=== PATIENT | female | born 2000 | race African-American/Black ===

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

== ENCOUNTER 2021-08-14 15:52 | Inpatient (IN) | payer OTHER, SELFPAY ==
[2021-08-14 17:00] VITALS: TEMP 36.6
[2021-08-14 17:06] LABS: Basophils Percent Auto 0.2 % (0.2-1.2); Eosinophils Percent Auto 0.4 % (0-4.4); Hematocrit 38.5 % (37.0-47.0); Hemoglobin 12.5 g/dL (12.0-15.0); Immature Granulocyte Percent A 1.1 % (0-0.5); Lymphocytes Absolute Auto 2.15 K/mm3 (0.9-3.2); Lymphocytes Percent Auto 22.8 % (18.3-44.2); Mean Corpuscular HGB Conc 32.5 g/dl (32-36); Mean Corpuscular Hemoglobin 26.4 pg (26-34); Mean Corpuscular Volume 81.4 fl (80-100); Mean Platelet Volume 10.9 fl (7.4-10.4); Monocytes Absolute Auto 0.7 K/mm3 (0.1-0.6); Monocytes Percent Auto 7.7 % (2.6-8.5); Neutrophils Absolute Auto 6.4 K/mm3 (1.3-6.7); Neutrophils Percent Auto 67.8 % (45.5-73.1); Platelet Count Result 251 k/mm3 (150-375); Red Blood Count 4.73 M/mm3 (4.2-5.4); Red Cell Distribution Width 14.2 % (11.5-14.5); White Blood Count 9.4 K/mm3 (4.5-10.0)
[2021-08-14] MEDS: DINOPROSTONE 10 MG VAG INSERT VAGINAL (17:22)
[2021-08-14] MEDS: AMPICILLIN 2 GM/NS 100 ML 2 GM/100 ML BAG IVPB (17:23)
[2021-08-14] MEDS: LACTATED RINGERS 1,000 ML 125 ML IV CONT (17:23)
[2021-08-14 17:31] VITALS: BMI 32.5
[2021-08-14 18:11] VITALS: BP 118/76; PULSE 106; RESP 18; TEMP 36.6
[2021-08-14 19:40] VITALS: BP 131/86; PULSE 103; RESP 16; TEMP 36.8
[2021-08-14] MEDS: AMPICILLIN 1 GM/NS 50 ML 1 GM/50 ML BAG IVPB (21:16)
[2021-08-14 22:02] VITALS: BP 127/86; PULSE 92; RESP 18; TEMP 36.6
[2021-08-15] VITALS (138 sets, daily range): BP systolic 89–154; BP diastolic 45–107; PULSE 63–127; RESP 16–22; TEMP 36.6–37.1; O2SAT 94–100
[2021-08-15] MEDS: AMPICILLIN 1 GM/NS 50 ML 1 GM/50 ML BAG IVPB ×5 (01:04→20:47)
--- NOTE | 2021-08-15 05:02 | WPDANESEPP ---
Anes - Eval Pre Procedure Procedure: labor epidural Date/Time: 08/15/21 05:02 Surgeon: moira Preop Diagnosis: pain during labor Pre Op Diagnosis: Induction of Labor Patient Data Age: 21 Gender: F Height: 1.75 m Weight: 100 kg Last Vital Signs Temp 36.6 C 08/14/21 22:02 Pulse 81 08/15/21 04:20 Resp 18 08/14/21 22:02 BP 127/83 08/15/21 04:20 Allergies Allergy/AdvReac Type Severity Reaction Status Date / Time No Known Allergies Allergy Verified 07/29/21 09:29 Home Medications Medication Instructions Recorded Confirmed Type ferrous sulfate 325 mg (65 mg 325 mg PO DAILY 06/12/21 07/29/21 History iron) tablet prenat.vits,cortney,mko-ozkq-kajyw 1 tablet PO DAILY 06/12/21 07/29/21 History Laboratory Tests 08/14/21 08/14/21 08/14/21 16:58 16:58 16:58 WBC 9.4 K/mm3 K/mm3 (4.5-10.0) RBC 4.73 M/mm3 M/mm3 (4.2-5.4) Hgb 12.5 g/dL g/dL (12.0-15.0) Hct 38.5 % % (37.0-47.0) MCV 81.4 fl fl (80-100) MCH 26.4 pg pg (26-34) MCHC 32.5 g/dl g/dl (32-36) RDW 14.2 % % (11.5-14.5) Plt Count 251 k/mm3 k/mm3 (150-375) MPV 10.9 fl H fl (7.4-10.4) Immature Gran % (Auto) 1.1 % H % (0-0.5) Neut % (Auto) 67.8 % % (45.5-73.1) Lymph % (Auto) 22.8 % % (18.3-44.2) [place] % (Auto) 7.7 % % (2.6-8.5) Eos % (Auto) 0.4 % % (0-4.4) Baso % (Auto) 0.2 % % (0.2-1.2) Lymph # (Auto) 2.15 K/mm3 K/mm3 (0.9-3.2) [place] # (Auto) 0.7 K/mm3 H K/mm3 (0.1-0.6) Eos # (Auto) 0.0 K/mm3 K/mm3 (0-0.3) Baso # (Auto) 0.0 K/mm3 K/mm3 (0.0-0.1) Abs Immat Gran (auto) 0.10 K/mm3 H K/mm3 (0.00-0.031) Absolute Neuts (auto) 6.4 K/mm3 K/mm3 (1.3-6.7) Absolute Nucleated RBC 0.0 K/mm3 K/mm3 (0.0-0.012) Nucleated RBC % 0.0 % % (0.0-0.2) RPR Pending Blood Type O Positive Antibody Screen Negative Patient hx anesthesia problems: none Family hx anesthesia problems: none Results Review: All pre-operative results and documents have been reviewed as part of the pre-operative evaluation. [facility] Past Medical History Medical History (Updated 08/15/21 @ 05:03 by Alissa Singh CRNA) IUP (intrauterine ), incidental Obesity Family History Family History Father Hypertension Mother Hypertension Social History Social History Smoking status: Never smoker Second hand tobacco smoke exposure: No Alcohol intake: never Substance use: current Substance use type: marijuana Gender identity (if verbalized by the patient): Female Sexual Orientation (if Verbalized by the Patient): Straight or Heterosexual Spiritual care concerns: No Agree to blood products: No Exam Day of Procedure 08/15/21 05:02
[2021-08-15] MEDS: OXYTOCIN 30 UNITS/NS 500 ML 30 UNITS/500 ML BAG 6 UNITS IV CONT (05:55)
[2021-08-15 06:08] LABS: Rapid Plasma Reagin Non-Reactive (NonReactive)
--- NOTE | 2021-08-15 07:02 | PM.IMHP ---
H&P: HPI History of Present Illness Date/Time: 08/15/21 07:08 Ronda is a 21yo @ 40.2wks (EDUAR 08/13/21) who presented overnight for cervidil IOL. She reports good movement. No VB or LOF. Her has been complicated by: - GBS positive (bacteruria) - Anemia on iron Chief Complaint: induction of labor Review of Systems Review of Systems: All systems reviewed & are unremarkable except as noted in HPI and below (HPI) [facility] Past Medical History Medical History (Updated 08/15/21 @ 05:03 by Alissa Singh CRNA) IUP (intrauterine ), incidental Obesity Family History Family History Father Hypertension Mother Hypertension Social History Social History Smoking status: Never smoker Second hand tobacco smoke exposure: No Alcohol intake: never Substance use: current Substance use type: marijuana Gender identity (if verbalized by the patient): Female Sexual Orientation (if Verbalized by the Patient): Straight or Heterosexual Spiritual care concerns: No Agree to blood products: No Meds Home Medications and Allergies Home Medications Medication Instructions Recorded Confirmed Type ferrous sulfate 325 mg (65 mg 325 mg PO DAILY 06/12/21 07/29/21 History iron) tablet prenat.vits,cortney,ivk-lzud-wlzkn 1 tablet PO DAILY 06/12/21 07/29/21 History Allergies Allergy/AdvReac Type Severity Reaction Status Date / Time No Known Allergies Allergy Verified 07/29/21 09:29 Vital Signs Vital Signs - 24 hr 08/14/21 17:00 08/14/21 18:11 08/14/21 19:40 Temperature 98 F 97.9 F 98.2 F Pulse Rate 106 H 103 H Respiratory Rate 18 16 Blood Pressure 118/76 131/86 Exam Const: General: cooperative, healthy appearing, comfortable and no acute distress Resp: Effort & Inspection: normal respiratory effort Cardio: Rate: regular rate GI: GI Palp: No abdominal tenderness : Other: FHT's: 130's/ mod kaila/ + accels/ no decels - cat 1 TOCO: ctx's q2-4min Cervix: 2/50/-3, soft, anterior Membranes: intact Presentation: cephalic Neuro: General: patient oriented x3 Extrem: General: normal to inspection Psych: Appearance: grossly normal Affect: normal affect Attitude: cooperative H&P: Results Labs Labs: Short CBC 08/14/21 Range/Units 16:58 WBC 9.4 (4.5-10.0) K/mm3 Hgb 12.5 (12.0-15.0) g/dL Hct 38.5 (37.0-47.0) % Plt Count 251 (150-375) k/mm3 Assessment and Plan Assessment and plan (1) Encounter for induction of labor: Code(s): Z34.90 - Encounter for supervision of normal , unspecified, unspecified trimester Status: Acute (2) : Qualifiers: Weeks of gestation: 40 weeks Qualified Code(s): Z3A.40 - 40 weeks gestation of Code(s): Z34.90 - Encounter for supervision of normal , unspecified, unspecified trimester Status: Inactive Additional Plan - S/p cervidil overnight; continued with pitocin augmentation - Westfall balloon placed @ 0700 w/ 30cc of fluid - Continuous monitoring; reassuring - Anesthesia consult PRN pain - Ampicillin for GBS
--- NOTE | 2021-08-15 07:02 | WPDHPUPDATE1 ---
History and Physical Update Update Date/Time: 08/15/21 07:02 History and Physical has been reviewed, including an updated exam of the patient. There are NO changes in the patient's condition. Risks, benefits, and alternatives have been discussed and questions answered. Patient agrees to proceed with procedure.
--- NOTE | 2021-08-15 07:14 | PM.OBPNLAB ---
Pain Control Date/time seen: 08/15/21 07:14 Pain control: tolerating well Pelvic Exam Dilation (cm): 3 Effacement (%): 50 station: -2 Amniotic membrane status: Ruptured (AROM, clear 0710) Contractions Monitor mode: External Contraction frequency: 2 Contraction pattern: Regular Status status: Category l Assessment and Plan Pitocin rate (mU/min): 8 Assessment: induction ongoing Plan: continuous present management
[2021-08-15] MEDS: fentaNYL CITRATE INJ (*CRX) 100 MCG/2 ML VIAL 50 MCG IV PUSH ×2 (10:16→12:07)
[2021-08-15] MEDS: LACTATED RINGERS 1,000 ML 125 ML IV CONT ×2 (12:08→15:41)
--- NOTE | 2021-08-15 12:17 | PM.OBPNLAB ---
Pain Control Date/time seen: 08/15/21 12:17 Comments: awaiting epidural Pelvic Exam Dilation (cm): 4 Effacement (%): 70 station: -2 Amniotic membrane status: Ruptured (AROM, clear 0710) Contractions Monitor mode: External Contraction frequency: 3 Contraction pattern: Regular Status status: Category l Assessment and Plan Pitocin rate (mU/min): 12 Assessment: induction ongoing Plan: continuous present management
--- NOTE | 2021-08-15 17:18 | PM.OBPNLAB ---
Pain Control Date/time seen: 08/15/21 17:18 Pain control: epidural Pelvic Exam Dilation (cm): 6 Effacement (%): 100 station: -2 Amniotic membrane status: Ruptured (AROM, clear 0710) Contractions Monitor mode: Internal Contraction frequency: 2 (-3) Contraction pattern: Regular Intrauterine tone measurement: 50 Status status: Category l Assessment and Plan Pitocin rate (mU/min): 16 Assessment: active labor Plan: continuous present management
[2021-08-15] MEDS: miSOPROStol 200 MCG TABLET 800 MCG (22:54)
[2021-08-15] MEDS: OXYTOCIN 30 UNITS/NS 500 ML 30 UNITS/500 ML BAG 125 UNITS IV CONT (23:00)
--- NOTE | 2021-08-15 23:03 | PM.OBPRVD ---
OB - Delivery Note Procedure Delivery date: 08/15/21 Events: Elective Induction of Labor and Positive Group B Strep (GBS) Induction method: Per Cervidil Protocol Delivery augmentation: Rupture of Membranes and Pitocin Delivery monitor: External FHT and Internal Uterine Route of delivery: Laceration Description: Periurethral (right) Delivery repair: vicryl Specimen: No Quantitative Blood Loss (ml): 250 Anesthesia type: Epidural Disposition: Floor [place] Baby Date of : 08/15/21 Time of : 22:38 Weeks of gestation at delivery: 40 (.2) gender: Female Weight (pounds): 7 Weight (ounces): 13 presentation: vertex position: Right Occiput Anterior Placenta delivery description: Expressed Cord Vessel Description: 3 Vessels, Nuchal Cord, Loose and Delayed Cord Clamping score one minute: 7 score five minutes: 9 Narrative: Ronda progressed to complete dilation with strong desire to push. She pushed for approximately 45 minutes with good maternal effort. She delivered the head over intact perineum. Nuchal cord was noted but loose and delivered through. She easily delivered the 's shoulders and body without complication. The infant was immediately placed skin to skin. The mouth and nose were bulb suctioned. The infant was stimulated and cry was heard. Delayed cord clamping was performed, and the cord was then cut. The infant was taken to the warmer for further stimulation and better cry. A segment of the cord was collected for cord gases. The remaining cord blood was collected for typing. With Pitocin running and gentle downward traction on the cord, the placenta delivered without complications. Brisk bleeding was noted and uterine massage was performed, where mild atony was noted and resolved with massage. She was examined and a right periurethral laceration was noted. The periurethral laceration was repaired in the normal fashion using 3-0 Vicryl. Bleeding was once again noted, but she was uncomfortable and did not tolerate bimanual massage, therefore Fentanyl was given. Once she was comfortable, bimanual massage was performed and a large clot was removed. No membranes or placental fragments were noted on uterine sweep. Misoprostol 800mcg was then placed rectally. sponge, lap, instrument, needle counts were correct at the end the procedure. Mom and baby were left bonding in the birthing suite in stable condition. [facility] Delivery Billing Delivery Delivery: Delivery Charge
[2021-08-16] VITALS (7 sets, daily range): BP systolic 104–129; BP diastolic 59–87; PULSE 94–106; RESP 14–18; TEMP 36.6–37.9; O2SAT 99–100
[2021-08-16] MEDS: BENZOCAINE 20% AER SPR (*SP) 56 GM CAN 1 SPRAY TOPICAL (01:23)
[2021-08-16] MEDS: ACETAMINOPHEN 325 MG TABLET 650 MG PO ×2 (01:23→17:36)
[2021-08-16] MEDS: WITCH HAZEL 40 PADS 1 PAD TOPICAL (01:23)
[2021-08-16] MEDS: IBUPROFEN 600 MG TABLET PO ×2 (01:23→12:00)
[2021-08-16 07:55] LABS: Hematocrit 30.8 % (37.0-47.0); Hemoglobin 9.9 g/dL (12.0-15.0)
[2021-08-16] MEDS: MULTIVIT/MIN/PREN/FOL AC/IRON TABLET 1 TAB PO (09:00)
--- NOTE | 2021-08-16 11:10 | WPDANLDPN2 ---
Anes-Prog Note L&D Date/Time: 08/16/21 11:10 Comfortable throughout: labor and delivery Neuraxial method: epidural Epidural/Spinal procedure site: clean & non-tender Neuro status: Neuro function grossly intact. Cardiovascular status: normal Respiratory status: normal Airway patency: baseline Mental status: baseline Post-Op hydration status: normal Vital Signs: Last Vital Signs Temp 36.6 C 08/16/21 07:25 Pulse 105 H 08/16/21 07:25 Resp 16 08/16/21 07:25 BP 122/87 08/16/21 07:25 Pulse Ox 100 08/16/21 07:25 Pain score (VAS): 3 I/O: Intake & Output 08/15/21 08/16/21 08/16/21 23:59 07:59 15:59 Output Total 360 Balance -360 Post-procedural complaints: none Patient feedback: Patient satisfied with anesthetic care.
[2021-08-16] MEDS: DOCUSATE SODIUM 100 MG CAPSULE PO ×2 (12:00→17:36)
--- NOTE | 2021-08-16 13:10 | P.PNOB_ITS ---
OB - PN: Subj Subjective Date/time seen: 08/16/21 10:10 Narrative: PPD#1 Ronda reports doing well today. Her bleeding is light today. Her pain is well controlled on the PO meds. She is tolerating regular diet, voiding, passing gas, and ambulating without issues. She is breast and bottle feeding. She would like to go home tomorrow. OB - PN: Obj Data Labs CBC & Chem 7: 08/16/21 05:02 Labs: Laboratory Results - last 24 hr 08/16/21 05:02 Hgb 9.9 L Hct 30.8 L OB - PN A/P Assessment and Plan (1) Normal vaginal delivery of first : Code(s): O80 - Encounter for full-term uncomplicated delivery Status: Acute Plan day: 1 Plan: routine care and discharge home (tomorrow) Comments: - Pelvic rest; take meds as prescribed - ER return precautions: fever, n/v/abd pain, bleeding, HTN Time Spent With Patient Time: Total time spent is greater than 50% in coordination of care (as documented) at patient's floor/unit and/or counseling patient: Review of Systems 2 Constitutional: Constitutional: Denies chills, Denies fever(s) and Denies h eadache(s) Eyes: Eyes: Denies change in vision ENT: Denies dizziness and Denies headache(s) Cardiovascular: Cardiovascular: Denies chest pain, Denies palpitations and Denies dyspnea Respiratory: Respiratory: Denies cough and Denies dyspnea Gastrointestinal: Gastrointestinal: Denies nausea and Denies vomiting Neurologic: Denies dizziness and Denies headache(s) Endocrine: Endocrine: Denies palpitations Exam Const: General: cooperative, comfortable and no acute distress Orientation/consciousness: patient oriented x3 Resp: Effort & Inspection: normal respiratory effort Auscultation: clear to auscultation bilaterally Cardio: Rate: regular rate GI: Inspection: non-distended GI Palp: No abdominal tenderness and Yes Soft to palpation Auscultation: normal bowel sounds : Other: fundus firm Skin: General skin exam: normal color Neuro: General: patient oriented x3 Extrem: General: normal to inspection Psych: Appearance: grossly normal Affect: normal affect Attitude: cooperative
[2021-08-16] MEDS: POLYSACCHARIDE IRON COMPLEX 150 MG CAPSULE PO (17:37)
[2021-08-17] MEDS: DOCUSATE SODIUM 100 MG CAPSULE PO (06:50)
[2021-08-17] MEDS: IBUPROFEN 600 MG TABLET PO (06:50)
[2021-08-17] MEDS: BENZOCAINE 20% AER SPR (*SP) 56 GM CAN 1 SPRAY TOPICAL (06:50)
[2021-08-17] MEDS: MULTIVIT/MIN/PREN/FOL AC/IRON TABLET 1 TAB PO ×2 (06:51→08:38)
[2021-08-17] MEDS: WITCH HAZEL 40 PADS 1 PAD TOPICAL (06:51)
[2021-08-17] MEDS: POLYSACCHARIDE IRON COMPLEX 150 MG CAPSULE PO (06:51)
[2021-08-17 12:22] VITALS: BP 122/78; PULSE 86; PULSE 94; RESP 14; TEMP 37; O2SAT 100; O2SAT 99
[2021-08-19 08:33] VITALS: BP 138/88; PULSE 82; RESP 20; TEMP 37.2; O2SAT 100
--- NOTE | 2021-08-20 07:37 | PM.OBDSVD ---
DS: Admitting Diagnosis Discharge Date 08/17/21 Admitting Diagnosis induction of labor DS: Discharge Diagnosis Discharge Diagnosis (1) Normal vaginal delivery of first : Code(s): O80 - Encounter for full-term uncomplicated delivery Status: Acute OB - DS: Summary OB Procedures : Ultrasound OB Procedures Intrapartum: Spontaneous Vag Delivery OB Procedures: : None Peripartum Data Delivery Method: Natural Vaginal Laceration Description: Periurethral complications: none 1: Gender: Female Disposition of : home Status at Discharge Functional status at discharge: independent ambulation Overall status at discharge: patient is back to baseline Time Spent with Patient Time attestation: Total time spent providing and/or coordinating discharge services: Time spent: Less than 30 minutes Exam Const: General: cooperative, comfortable and no acute distress Orientation/consciousness: patient oriented x3 Resp: Effort & Inspection: normal respiratory effort Auscultation: clear to auscultation bilaterally Cardio: Rate: regular rate GI: Inspection: non-distended GI Palp: No abdominal tenderness and Yes Soft to palpation Auscultation: normal bowel sounds : Other: fundus firm Skin: General skin exam: normal color Neuro: General: patient oriented x3 Extrem: General: normal to inspection Psych: Appearance: grossly normal Affect: normal affect Attitude: cooperative Discharge Plan Discharge Attending physician on discharge: Anya Frye Discharging Clinician: Anya Frye Anticipated Discharge Date/Time: 08/17/21 08:00 Patient Disposition: Home, Self-Care Activity: may shower, may drive after 2 weeks and pelvic rest Diet: as tolerated and regular Discharge Instructions: Education: Mom and Baby Guide Given to: Mother Follow-Up: Call your delivering provider's office for an appointment to be seen in: 4 Weeks Mom and baby should come to the [facility] for the follow-up appointment. Appointment Date/Time: August 19, 2021 at 9:00 am What to expect at your follow-up visit: Blood Pressure Check Physical Assessment Call [phone] if you are unable to keep your appointment time. BREAST CARE: * Wear a snug supportive bra. * For engorgement discomfort: Bottle Feeding: * May apply ice packs *Do not pump milk from breasts, this will cause the body to make more milk * Take Motrin for discomfort EPISIOTOMY/PERINEAL CARE: * Until bleeding stops, use your kathleen bottle after urinating * Change your pad frequently throughout the day * You may take sitz baths several times a day (fill your bathtub with warm water and soak for 20 minutes.) Do NOT bathe in the water * No tub baths until seen by your physician - You may shower ACTIVITY: * Rest as much as possible. * Do not exercise or lift anything heavier than your baby (such as laundry or other children.) * Avoid stairs or driving as much as possible. * Do not put anything into the vagina. No douching, tampons, or sexual activity until seen by physician. NOTIFY PHYSICIAN IF YOU HAVE ANY QUESTIONS OR IF ANY OF THE FOLLOWING SYMPTOMS OCCUR: * If your vaginal area becomes red, swollen, or more painful than what you have experienced in the hospital. * If your vaginal bleeding becomes foul smelling. * If your vaginal bleeding becomes more heavy than a period or if your bleeding changes from pink to bright red. However, you may pass an occasional walnut-sized clot once or twice for the first week . * If you experience a sharp, shooting pain in your calves. * If you discover a hard, reddened area on your breast or if you experience flu-like symptoms. DIET: * Eat regular, well-balanced meals. * Drink plenty of fluids daily. Patient Instructions: Caring for Your Baby (DC) Stand Alone Forms: Ge
== END 2021-08-17 12:10 | disposition home or self-care (01) | DRG 560 ==
LOC: ANHLDR 08-15 10:09 → ANHOB2 08-16 10:13 → ANHLDR 08-20 09:06 → ANHOB2 08-20 09:06
PROVIDERS: Admitting Provider Obstetrics & Gynecology; Visit Provider Obstetrics & Gynecology
DX: O99.824 Streptococcus B carrier state complicating childbirth (principal); Z37.0 Single live birth; Z3A.40 40 weeks gestation of pregnancy; O69.81X0 Labor and delivery complicated by cord around neck, without compression, not applicable or unspecified; O71.82 Other specified trauma to perineum and vulva; O99.02 Anemia complicating childbirth; D64.9 Anemia, unspecified
CPT/HCPCS: 36415; 85014; 85018; 85025; 86592; 86850; 86900; 86901; A9270; J0290; J2590; J2795; J3010; J7120

== ENCOUNTER 2021-12-23 12:19 | Outpatient (CLI) | payer OTHER, SELFPAY ==
[2021-12-23 13:15] LABS: Beta HCG Quantitative < 2.39 mIU/ML
== END 2021-12-23 12:20 | disposition home or self-care (01) ==
LOC: ANHLAB 12:21
PROVIDERS: Visit Provider Obstetrics & Gynecology
DX: Z30.9 Encounter for contraceptive management, unspecified (principal)
CPT/HCPCS: 36415; 84702

== ENCOUNTER 2022-11-27 11:36 | Outpatient (CLI) | payer OTHER, SELFPAY ==
[2022-11-27 13:03] LABS: Basophils Percent Auto 0.3 % (0.2-1.2); Eosinophils Absolute Auto 0.1 K/mm3 (0-0.3); Eosinophils Percent Auto 1.5 % (0-4.4); Hematocrit 41.9 % (37.0-47.0); Hemoglobin 12.7 g/dL (12.0-15.0); Immature Granulocyte Absolute 0.02 K/mm3 (0.00-0.031); Immature Granulocyte Percent A 0.3 % (0-0.5); Lymphocytes Absolute Auto 2.51 K/mm3 (0.9-3.2); Lymphocytes Percent Auto 38.4 % (18.3-44.2); Mean Corpuscular HGB Conc 30.3 g/dl (32-36); Mean Corpuscular Hemoglobin 25.4 pg (26-34); Mean Corpuscular Volume 83.8 fl (80-100); Mean Platelet Volume 9.9 fl (7.4-10.4); Monocytes Absolute Auto 0.5 K/mm3 (0.1-0.6); Monocytes Percent Auto 6.9 % (2.6-8.5); Neutrophils Absolute Auto 3.4 K/mm3 (1.3-6.7); Neutrophils Percent Auto 52.6 % (45.5-73.1); Platelet Count Result 303 k/mm3 (150-375); Red Cell Distribution Width 13.3 % (11.5-14.5); White Blood Count 6.5 K/mm3 (4.5-10.0)
[2022-11-27 13:22] LABS: Hemoglobin A1C 5.6 % (<5.7)
[2022-11-27 13:37] LABS: Cholesterol 193 mg/dL (0-200); HDL Direct 39 mg/dL; Triglycerides 130 mg/dL (<150)
[2022-11-27 13:48] LABS: LDL Cholesterol Direct 133 mg/dL
[2022-12-01 13:25] LABS: DHEA-Sulfate 184 mcg/dL (51-321)
[2022-12-05 17:07] LABS: Testosterone Free 6.8 pg/mL (0.1-6.4); Testosterone Total 53 ng/dL (2-45)
[2022-12-07 04:54] LABS: FSH 7.5 mIU/mL (***); Progesterone 0.3 ng/mL (***); Prolactin 12.8 ng/mL (***)
[2022-12-17 08:43] LABS: Reference Lab Test Result 32.1
== END 2022-11-27 11:37 | disposition home or self-care (01) ==
LOC: ANHLAB 11:37
PROVIDERS: Visit Provider Obstetrics & Gynecology
DX: N92.6 Irregular menstruation, unspecified (principal); E66.9 Obesity, unspecified
CPT/HCPCS: 36415; 80061; 82627; 82670; 83001; 83036; 83498; 83525; 84144; 84146; 84402; 84403; 84443; 85025

== ENCOUNTER 2024-03-22 15:50 | Outpatient (CLI) | payer OTHER, SELFPAY ==
[2024-03-22 16:33] LABS: Basophils Percent Auto 0.4 % (0.2-1.2); Eosinophils Absolute Auto 0.2 K/mm3 (0-0.3); Eosinophils Percent Auto 4.2 % (0-4.4); Hematocrit 39.8 % (37.0-47.0); Hemoglobin 12.2 g/dL (12.0-15.0); Immature Granulocyte Absolute 0.01 K/mm3 (0.00-0.031); Immature Granulocyte Percent A 0.2 % (0-0.5); Lymphocytes Absolute Auto 1.45 K/mm3 (0.9-3.2); Lymphocytes Percent Auto 27.8 % (18.3-44.2); Mean Corpuscular HGB Conc 30.7 g/dl (32-36); Mean Corpuscular Hemoglobin 22.8 pg (26-34); Mean Corpuscular Volume 74.4 fl (80-100); Mean Platelet Volume 9.3 fl (7.4-10.4); Monocytes Absolute Auto 0.4 K/mm3 (0.1-0.6); Monocytes Percent Auto 7.9 % (2.6-8.5); Neutrophils Absolute Auto 3.1 K/mm3 (1.3-6.7); Neutrophils Percent Auto 59.5 % (45.5-73.1); Platelet Count Result 293 k/mm3 (150-375); Red Blood Count 5.35 M/mm3 (4.2-5.4); Red Cell Distribution Width 18.2 % (11.5-14.5); White Blood Count 5.2 K/mm3 (4.5-10.0)
[2024-03-22 16:55] LABS: Large Platelets Present; Ovalocytes 1+; Platelet Estimate Adequate (Adequate); Schistocytes None Seen
[2024-03-22 17:35] LABS: Hepatitis B Surface Antigen Negative (Negative); Rubella IgG Antibody 19.5 IU/ML
[2024-03-23 08:34] LABS: Varicella IgG Antibody 2.95 S/CO
[2024-03-23 09:42] LABS: Rapid Plasma Reagin Non-Reactive (NonReactive)
== END 2024-03-22 15:51 | disposition home or self-care (01) ==
LOC: ANHLAB 15:51
PROVIDERS: Visit Provider Student in an Organized Health Care Education/Training Program
DX: N91.2 Amenorrhea, unspecified (principal)
CPT/HCPCS: 36415; 81220; 84702; 85025; 86592; 86644; 86747; 86762; 86787; 86850; 86900; 86901; 87086; 87340

== ENCOUNTER 2024-03-26 07:40 | Outpatient (CLI) | payer OTHER, SELFPAY ==
[2024-03-26 09:08] LABS: HIV 1/2 Ab P24 Ag Result Negative (Negative)
[2024-03-28 11:38] LABS: Hematocrit 38.9 % (35.0-45.0); MCH 22.7 pg (27.0-33.0); MCV 80.2 fL (80.0-100.0); RDW 17.4 % (11.0-15.0); Red Blood Cell Count 4.85 Million/uL (3.80-5.10)
== END 2024-03-26 07:41 | disposition home or self-care (01) ==
LOC: ANHLAB 07:41
PROVIDERS: Visit Provider Student in an Organized Health Care Education/Training Program
DX: N91.2 Amenorrhea, unspecified (principal); R71.8 Other abnormality of red blood cells
CPT/HCPCS: 36415; 83021; 85660; 86703; G0432

== ENCOUNTER 2024-05-30 15:25 | Outpatient (CLI) | payer OTHER, SELFPAY ==
--- NOTE | ~2024-05-30 | US_ITS ---
EXAMINATION: US OB /maternal detail DATE: 05/30/2024 16:39 INDICATION: anatomic survey. TECHNIQUE: Real-time ultrasound of the pelvis was performed. COMPARISON: Ultrasound 03/23/2024 FINDINGS: There is a single living fetus in variable presentation. The placenta is posterior, 5.0 cm from the cervix. The cervical length is 6.5 cm on transabdominal images, which is normal. heart rate is 153 beats per minute (bpm). The amniotic fluid volume is subjectively normal. The following biometric data were obtained: Biparietal diameter (BPD): 4.9 cm; head circumference (HC): 18.4 cm; abdominal circumference (AC): 15 .7 cm; femur length (FL): 3.6 cm. These measurements are concordant. Estimated weight is 399 g +/- 60 g, which correlates with the 81st percentile when 10/14/24 is u sed as estimated date of delivery. As single measurements, these parameters are each equal to the following estimated gestational ages: BPD: 20 weeks 6 days. HC: 20 weeks 5 days. AC: 20 weeks 6 days. FL: 21 weeks 4 days. estimated gestational age based solely on measurements from this exam is 21 weeks 0 days +/- 1 weeks 3 days. The cerebral ventricles, cerebellum, cisterna magna, nuchal fold, lip, and spine are normal. The hear t is normal. The diaphragm, stomach, left kidney, and bladder are normal. There is mild pelviectasis of right kidney. There are two umbilical arteries to yield a 3-vessel cord. The cord insertion is nor mal. IMPRESSION: 1. Single living fetus in variable presentation. 2. Estimated weight is 399 g +/- 60 g, which correlates with the 81st percentile when 10/14/24 is used as estimated date of delivery. 3. Mild pelviectasis of right kidney. Reviewed, dictated and finalized at location [] RSIONAL THERAPIST IMPRESSION: 1. Single living fetus in variable presentation. 2. Estimated weight is 399 g +/- 60 g, which correlates with the 81st pe rcentile when 10/14/24 is used as estimated date of delivery. 3. Mild pelviectasis of right kidney.
== END 2024-05-30 15:26 | disposition home or self-care (01) ==
PROVIDERS: Visit Provider Student in an Organized Health Care Education/Training Program
DX: Z34.82 Encounter for supervision of other normal pregnancy, second trimester (principal)
CPT/HCPCS: 76805

== ENCOUNTER 2024-08-05 16:48 | Outpatient (CLI) | payer OTHER, SELFPAY ==
--- OUTSIDE RECORDS SUMMARY | 2024-08-05 16:53 | XMS_ITS | Clinical Summary ---
Author Organization [facility] Health Address [address] [place] [address] Care Team Providers Care Tibco Developer Name Role Phone Unavailable Primary Care Provider Unavailabl e Source Comments [facility],non-owned Affiliates and Associated Physician Practices is amultiple site organization consisting of ambulatory clinics and hospital sitesin [place], [place], [place] and [place]. This disclosure is being madepursuant to the Care Everywhere program and may not contain all information available regarding this patient. Last updated 18.[facility] Health Encounters Date Type Department Care Team Description 06/21/2024 7:23 AM LIBERAL ARTS AND HUMANITIES CHAIR - 06/21/2024 11:59 PM LIBERAL ARTS AND HUMANITIES CHAIR Hospital Encounter [facility] Women's Health Maternal & Care [facility] [place] [id number] Hugh Tesfaye MD Discharge Disposition: Home or Self Care 06/17/2024 Travel from Last 3 Months Social History Tobacco Use Types Packs/Day Years Used Date Smoking Tobacco: Never Assessed Estimated Date of Delivery Comme nts Yes 10/14/2024 Based on last me nstrual period of 2024 Sex and Gender Information Value Date Recorded Sex Assigned at Not on file Gender Identity Not on file Sexual Orientation Not on file Plan of Treatment Health Maintenance Due Date Last Done Comments PAP SMEAR 2001 HIV SCREENING 01/09/2016 HPV VACCINE (1 - 3-dose series) 01/09/2016 CHLAMYDIA/GONORRHEA SCREENING 2017 MENINGOCOCCAL (Group B) VACC INE (1 of 2 - Standard) 2017 HEPATITIS C SCREENING 01/04/2019 DTAP/TDAP/TD VACCINES (1 - Tdap) 01/09/2020 HEPATITIS B VACCINE (1 of 3 - 19+ 3-dose series) 01/09/2020 COVID-19 VACCINE (1 - 2023-2 5 season) 2024 INFLUENZA VACCINE (#1) 2024 DEPRESSION SCREENING 06/01/2024 OB-ONE HOUR GLUCOSE 07/08/2024 OB-TDAP CURRENT 07/15/2024 OB-RHOGAM INJECTION 07/22/2024 ZOSTER VACCINE (1 of 2) 2051 HIB VACCINE Aged Out No longer eligi ble based on patient's age to complete this topic MENINGOCOCCAL VACCINE Aged Out No greg syd eligible based on patient's age to complete this topic PNEUMOCOCCAL VACCINE Aged Out No long er eligible based on patient's age to complete this topic Respiratory Syncytial Virus (RSV) Vaccine Pt: or over 60 yrs (No Doses Required) Completed Procedures Procedure Name Priority Date/Time Associated Diagnosis Comments SONOGRAM - COMPLETE Routine 06/21/2024 7 :36 AM LIBERAL ARTS AND HUMANITIES CHAIR Encounter for anatomic survey ([facility]) Encounter for repeat ultrasound of pyelectasis, antepartum, single or unspecified fetus ([facility]) 23 weeks gestation of ([facility]) from Last 3 Months Results * SONOGRAM - COMPLETE (06/21/2024 7:36 AM LIBERAL ARTS AND HUMANITIES CHAIR) Linked Results Indication ======== Renal Pelvis Dilation on Outside Scan History ====== OB History 2. Para 1 [id number] 1. live 2022. Gest. age 39 w + 0 d. Sex of child: female. Details: Vaginal delivery Lab Tests Test Date Result NIPT Low risk, Female Maternal Assessment Physical Exam Height 168 cm, 5 ft 6 in. Initial weight 76 kg, 168 lb. Initial BMI 27.12 kg/m Method ====== Transabdominal ultrasound. View: Good view ========= Mckenzie . Number of fetuses: 1 Dating ====== Date Details Gest. age EDUAR LMP 2024 23 w + 4 d 10/14/2024 U/S 06/21/2024 based upon AC, BPD, Femur, HC 24 w + 4 d 10/07/2024 Assigned dating based on the LMP, selected on 06/21/2024 23 w + 4 d 10/14/2024 General Evaluation Cardiac activity present. FHR 157 bpm. Presentation: cephalic Placenta: Placental site: posterior Umbilical cord: Cord vessels: 3 vessel cord. Insertion site: normal insertion Amniotic fluid: Amount of AF: normal. MVP 6.7 cm Biometry BPD 60.6 mm 24w 5d 82% Hadlock HC 221.0 mm 24w 1d 56% Hadlock Cerebellum tr 27.6 mm 95% [place] AC 192.0 mm 23w 6d 53% Hadlock Femur 46.4 mm 25w 3d 89% Hadlock Humerus 43.3 mm 25w 6d 96% Samuel HC / AC 1.15 -/- Hadlock Weight Calculation: EFW 707 g 83% Hadlock EFW (lb,oz) 1 lb 9 oz EFW by Hadlock ([id number]) Head / Face / Neck Biometry: Nasal bone 7.0 mm Urinary Tract Biometry: Rt Renal pelvis ap 3.2 mm Lt Renal pelvis ap 3.6 mm appropriate Growth Overview Exam date GA BPD (mm) HC (mm) AC (mm) FL (mm) HL (mm) EFW (g) 06/21/2024 23w 4d 60.6 82% 221 56% 192 53% 46.4 89% 43.3 96% 707 83% Anatomy The following structures appear normal: Head / Neck Cranium. Lateral ventricles. Choroid plexus. Midline falx. Cavum septi pellucidi. Cerebellum. Cisterna magna. Face Lips. Profile. Nose. Nasal bone. Orbits. Heart / Thorax 4-chamber view. RVOT view. LVOT view. 3-vessel view. 7-fzebid-expunnx view. Situs. Aortic arch view. Bicaval view. Ductal arch view. Great vessels. Diaphragm. Abdomen Cord insertion. Stomach. Kidneys. Bladder. Bowel. Genitals. Spine Cervical spine. Thoracic spine. Lumbar spine. Sacral spine. Extremities / Skeleton Arms. Hands. Legs. Feet. sex: female. Impression ========= * urinary tract dilation (UTD) is NOT confirmed on today's exam: diagnosis of UTD occurs in 1-2% of fetuses A multidisciplinary consensus paper (Eliza 2014) addressing UTD From medical professional organizations including ACR, AIUM & SMFM Proposed a classification system, based upon U/S criteria, including: The anterior-posterior renal pelvis diameter (APRPD) And any of several other descriptive findings: Peripheral calyceal dilation, parenchymal thickness abnormal Parenchymal appearance abnormal, ureters abnormal, bladder abnormal Or unexplained oligohydramnios of suspected cause Normal APRPD is defined at 16-27 weeks < 4.0 mm and >= 28 weeks < 7.0 mm At present she would be classified as NOT having UTD Please note our APRPD graphs (see below) use a different nomogram to illustrate trends References cited in this section: Gregorio & Jaylyn. Charts of ...kidney and renal pelvis measurements Prenat Diagn 2003;23:891-7. Eliza et al. Multidisciplinary consensus...UTD classification... J Pediatr Urol 2014;10:982-98. Follow-up ======== if later indicated (or at 32 weeks if it is later discovered that any family members had UTD postnatally) Coding ====== Procedures [id number]: US Preg Uterus Detailed [facility] Siving Egil [place] PACS Anatomical Region Laterality Modality Other 06/21/2024 7:36 AM LIBERAL ARTS AND HUMANITIES CHAIR Anya Frye MD [facility] ORDERABLES from Last 3 Months
--- OUTSIDE RECORDS SUMMARY | 2024-08-05 16:53 | XMS_ITS | Patient Health Summary ---
Author Organization [facility] Address [address] [place] [address] Care Team Providers Care Aircraft Technician Name Role Phone Unavailable Primary Care Provider Unavailabl e Note from [facility],non-owned Affiliates and Associated Physician Practices is amultiple site organization consisting of ambulatory clinics and hospital sitesin [place], [place], [place] and [place]. This disclosure is being madepursuant to the Care Everywhere program and may not contain all information available regarding this patient. Last updated 18.[facility] Social History Tobacco Use Types Packs/Day Years Used Date Smoking Tobacco: Never Assessed Estimated Date of Delivery Comme nts Yes 10/14/2024 Based on last me nstrual period of 2024 Sex and Gender Information Value Date Recorded Sex Assigned at Not on file Gender Identity Not on file Sexual Orientation Not on file Procedures * SONOGRAM - COMPLETE(Performed 06/21/2024) Performed for Encounter for anatomic survey (HCC), Encounter for repeat ultrasound of pyelectasis, antepartum, single or unspecified fetus (HCC), 23 weeks gestation of ([facility]) Results * SONOGRAM - COMPLETE (06/21/2024 7:36 AM DOLLY PUSHER) Linked Results Indication ======== Renal Pelvis Dilation on Outside Scan History ====== OB History 2. Para 1 [id number] 1. live 2022. Gest. age 39 w [...] 1 lb 9 oz EFW by Hadlock ([id number]) Head / Face / Neck Biometry: Nasal [...] view. RVOT view. LVOT view. 3-vessel view. 0-nstwrg-qixdcyr view. Situs. Aortic arch view. Bicaval view. [...] members had UTD postnatally) Coding ====== Procedures [id number]: US Preg Uterus Detailed [facility] [place] PACS Anatomical Region Laterality Modality Other 06/21/2024 7:36 AM DOLLY PUSHER Anya Frye MD [facility] ORDERABLES
--- OUTSIDE RECORDS SUMMARY | 2024-08-05 16:53 | XMS_ITS | Referral Summary ---
Author Organization [facility] Address [address] [place] [address] Care Team Providers Care Projection Camera Operator Name Role Phone Unavailable Primary Care Provider Unavailabl e Source Comments [facility],non-owned Affiliates and Associated Physician Practices is amultiple site organization consisting of ambulatory clinics and hospital sitesin [place], [place], [place] and [place]. This disclosure is being madepursuant to the Care Everywhere program and may not contain all information available regarding this patient. Last updated 18.[facility] Encounters Date Type Department Care Team Description 06/21/2024 7:23 AM REPAIRER KILN CAR - 06/21/2024 11:59 PM REPAIRER KILN CAR Hospital Encounter [facility] Women's Health Maternal & Care [facility] [place] [phone] Hugh Tesfaye MD Discharge Disposition: Home or [...] Orientation Not on file Plan of Treatment Not on file Procedures Procedure Name Priority Date/Time Associated Diagnosis Comments SONOGRAM - COMPLETE Routine 06/21/2024 7 :36 AM REPAIRER KILN CAR Encounter for anatomic survey (HCC) Encounter for repeat ultrasound of pyelectasis, antepartum, single or unspecified fetus (HCC) 23 weeks gestation of (HCC) from Last 3 Months Results * SONOGRAM - COMPLETE (06/21/2024 7:36 AM REPAIRER KILN CAR) Linked Results Indication ======== Renal Pelvis Dilation on Outside Scan History ====== OB History 2. Para 1 [id number] 1. live 2022. Gest. age 39 w [...] 1 lb 9 oz EFW by Hadlock ([id number]) Head / Face / Neck Biometry: Nasal [...] view. RVOT view. LVOT view. 3-vessel view. 0-udhqwk-sbqswyr view. Situs. Aortic arch view. Bicaval view. [...] members had UTD postnatally) Coding ====== Procedures [id number]: [facility] P[facility] Anatomical Region Laterality Modality Other 06/21/2024 7:36 AM REPAIRER KILN CAR Anya Frye MD [facility] ORDERABLES from Last 3 Months
[2024-08-05 18:10] LABS: Glucose 1 Hour PP 50gm Dose 103 mg/dL
== END 2024-08-05 16:49 | disposition home or self-care (01) ==
LOC: ANHLAB 16:51
PROVIDERS: Visit Provider Student in an Organized Health Care Education/Training Program
DX: Z34.90 Encounter for supervision of normal pregnancy, unspecified, unspecified trimester (principal)
CPT/HCPCS: 36415; 82947

== ENCOUNTER 2024-08-20 12:13 | Outpatient (CLI) | payer OTHER, SELFPAY ==
--- OUTSIDE RECORDS SUMMARY | 2024-08-20 12:19 | XMS_ITS | Clinical Summary ---
Author Organization [facility] Health Address [address] [place] [address] Care Team Providers Care Event Management Consultant Name Role Phone Unavailable Primary Care Provider Unavailabl e Source Comments [facility],non-owned Affiliates and Associated Physician Practices is amultiple site organization consisting of ambulatory clinics and hospital sitesin [place], [place], [place] and [place]. This disclosure is being madepursuant to the Care Everywhere program and may not contain all information available regarding this patient. Last updated 18.[facility] Health Encounters Date Type Department Care Team Description 06/21/2024 7:23 AM BANBURY OPERATOR - 06/21/2024 11:59 PM BANBURY OPERATOR Hospital Encounter [facility] Women's Health Maternal & Care [facility] [place] [phone] Hugh Tesfaye MD Discharge Disposition: Home or [...] SCREENING 2017 MENINGOCOCCAL (Group B) VACC INE SHARED DECISION-MAKING (1 of 2 - Standard) 2017 HEPATITIS [...] patient's age to complete this topic MENINGOCOCCAL GROUPS A/C/Y/W VACCINE Aged Out No longer eligible b ased on patient's age to complete this topic PNEUMOCOCCAL VACCINE Aged Out No long er eligible based on patient's age to complete this topic Respiratory Syncytial Virus (RSV) Vaccine Pt: or over 60 yrs (No Doses Required) Completed Procedures Procedure Name Priority Date/Time Associated Diagnosis Comments SONOGRAM - COMPLETE Routine 06/21/2024 7 :36 AM BANBURY OPERATOR Encounter for anatomic survey Encounter for repeat ultrasound of pyelectasis, antepartum, single or unspecified fetus 23 weeks gestation of from Last 3 Months Results * SONOGRAM - COMPLETE (06/21/2024 7:36 AM BANBURY OPERATOR) Linked Results Indication ======== Renal Pelvis Dilation on Outside Scan History ====== OB History 2. Para 1 [id number] 1. live 2022. Gest. age 39 w [...] 1 lb 9 oz EFW by Hadlock ([id number]) Head / Face / Neck Biometry: Nasal [...] view. RVOT view. LVOT view. 3-vessel view. 1-mhxhcw-ccvwddx view. Situs. Aortic arch view. Bicaval view. [...] members had UTD postnatally) Coding ====== Procedures [id number]: US Preg [facility]terus Detailed [facility] Well Done PACS Anatomical Region Laterality Modality Other 06/21/2024 7:36 AM BANBURY OPERATOR Anya Frye MD [facility] ORDERABLES from Last 3 Months
[2024-08-20 12:32] LABS: Hematocrit 34.3 % (37.0-47.0); Hemoglobin 10.8 g/dL (12.0-15.0); Mean Corpuscular HGB Conc 31.5 g/dl (32-36); Mean Corpuscular Hemoglobin 24.5 pg (26-34); Mean Platelet Volume 9.7 fl (7.4-10.4); Platelet Count Result 256 k/mm3 (150-375); Red Cell Distribution Width 15.6 % (11.5-14.5); White Blood Count 10.3 K/mm3 (4.5-10.0)
[2024-08-20 13:22] LABS: HIV 1/2 Ab P24 Ag Result Negative (Negative)
[2024-08-20 13:58] LABS: Syphilis IgG/IgM Antibody Negative (Negative)
== END 2024-08-20 12:14 | disposition home or self-care (01) ==
LOC: ANHLAB 12:18
PROVIDERS: Visit Provider Student in an Organized Health Care Education/Training Program
DX: Z34.90 Encounter for supervision of normal pregnancy, unspecified, unspecified trimester (principal)
CPT/HCPCS: 36415; 85027; 86593; 86703; G0432

== ENCOUNTER 2024-10-09 12:00 | Inpatient (IN) | payer OTHER, SELFPAY ==
--- NOTE | 2024-10-06 15:08 | PM.IMHP ---
H&P: HPI History of Present Illness Date/Time: 10/10/24 07:05 Chief Complaint: induction of labor Narrative: Ronda is a 24yo @ 39.3wks who presents for elective IOL. She has had regular care, uncomplicated . She reports good movement. Irregular ctx. No VB or LOF. Review of Systems Constitutional: Constitutional: Denies chills, Denies fever(s) and Denies headache(s) Eyes: Eyes: Denies change in vision ENT: Denies headache(s) Cardiovascular: Cardiovascular: Denies chest pain and Denies dyspnea Respiratory: Respiratory: Denies dyspnea Genitourinary: Genitourinary: Denies abnormal vaginal bleeding and Denies vaginal discharge Neurologic: Denies headache(s) Psychiatric: Psychiatric: Denies anxiety and Denies depression [facility] Past Medical History Medical History Obesity IUP (intrauterine ), incidental Family History Family History Father Hypertension Mother Hypertension Social History Social History Smoking status: Never smoker Second hand tobacco smoke exposure: No Alcohol intake: never Substance use: never Do You Feel Safe in your Home?: Yes Lack of Transportation: No Lack of Food: Never True Current Housing: I Have Housing Concerned About Future Housing: No Difficulty Paying Gas/Electric Bills: No Difficulty Paying for Meds: No Currently Unemployed: YES Education: High School Diploma/GED Difficulty w/ Childcare or Family Care: No Living arrangements: with family Occupation/Education: unemployed Gender identity (if verbalized by the patient): Female Sexual Orientation (if Verbalized by the Patient): Straight or Heterosexual Spiritual care concerns: No Agree to blood products: No Meds Home Medications and Allergies Home Medications ?Medication ?Instructions ?Recorded ?Confirmed ?Type vitamin with calcium 1 tablet PO DAILY #30 tabs 04/25/24 09/28/24 Rx no.72-iron 27 mg-folic acid 1 mg tablet (M- Plus) Allergies Allergy/AdvReac Type Severity Reaction Status Date / Time No Known Allergies Allergy Verified 09/28/24 17:53 Exam Const: General: cooperative, no acute distress and obese Nutritional Appearance: obese Orientation/consciousness: patient oriented x3 Resp: Effort & Inspection: normal respiratory effort Cardio: Rate: regular rate GI: GI Palp: No abdominal tenderness : Other: FHT's: 1_0's/ mod kaila/ + accels/ no decels - cat 1 TOCO: ctxs q_min Cervix: Membranes: intact Presentation: cephalic Skin: General skin exam: normal color Neuro: General: patient oriented x3 Extrem: General: normal to inspection Psych: Appearance: grossly normal Affect: normal affect Attitude: cooperative Assessment and Plan Assessment and plan (1) Encounter for induction of labor: Code(s): Z34.90 - Encounter for supervision of normal , unspecified, unspecified trimester Status: Acute Plan - Admitted for elective induction of labor; risks and benefits discussed - Cytotec 50mcg buccal x1 then will reassess cervix after 4 hours, likely switch to pitocin - AROM, clear @ _ - Continuous monitoring - GBS neg - Anesthesia consult PRN pain
[2024-10-09] VITALS (24 sets, daily range): BP systolic 112–174; BP diastolic 48–97; PULSE 80–117; RESP 16; TEMP 36.2–36.6; O2SAT 100; BMI 34.8
--- OUTSIDE RECORDS SUMMARY | 2024-10-09 12:28 | XMS_ITS | Clinical Summary ---
Author Organization [place] [id number] [facility] Address [facility] [place] [address] Care Team Providers Care Rehabilitation Services Manager Name Role Phone Referring, Unknown MD Primary Care Provider Unav ailable Allergies No known active allergies Social History Tobacco Use Types Packs/Day Years Used Date Smoking Tobacco: Never Assessed Comments Unknown Sex and Gender Information Value Date Recorded Sex Assigned at Not on file Legal Sex Female 8:06 AM SPECIALTY SALES REPRESENTATIVE Gender Identity Not on file Sexual Orientation Not on file Obstetrics History Para Term AB IAB SAB Ectopic Multiple Livin g Live Births 1 Date Outcome GA Total Labor Labor/2nd/3rd Weight Sex Type Anes PTL Pastora A1 A5 Name Clin Last Filed Vital Signs Vital Sign Reading Time Taken Comments Blood Pressure 155/91 12/25/2020 9:47 AM CDT Pulse 77 12/25/2020 9:47 AM CDT Temperature 37.1 C (98.8 F) 12/25/2020 9:47 AM CDT Respiratory Rate 17 12/25/2020 9:47 AM CDT Oxygen Saturation 100% 12/25/2020 9:47 AM CDT Inhaled Oxygen Concentration - - Weight 89 kg (196 lb 3.4 oz) 12/25/2020 9:47 AM CDT Height 172.7 cm (5' 8 ) 12/25/2020 9:47 AM CDT Body Mass Index 29.83 12/25/2020 9:47 AM CDT Plan of Treatment Not on file Insurance [employer]PA [facility] [place] [address] [employer]PA Care Teams Rehabilitation Services Manager Relationship Specialty Start Date End Date Referring, Unknown, MD PCP - General Pediatrics 04/12/18
--- OUTSIDE RECORDS SUMMARY | 2024-10-09 12:28 | XMS_ITS | Clinical Summary ---
Author Organization [facility] Address [address] [place] [address] Care Team Providers Care Wallpaper Installer Name Role Phone Unavailable Primary Care Provider Unavailabl e Source Comments [facility],non-owned Affiliates and Associated Physician Practices is amultiple site organization consisting of ambulatory clinics and hospital sitesin [place], [place], [place] and [place]. This disclosure is being madepursuant to the Care Everywhere program and may not contain all information available regarding this patient. Last updated 18.[facility] Social History Tobacco Use Types Packs/Day Years Used Date Smoking Tobacco: Never Assessed Estimated Date of Delivery Comme nts Yes 10/14/2024 Based on last me nstrual period of 2024 Sex and Gender Information Value Date Recorded Sex Assigned at Not on file Legal Sex Female 11:41 AM ENVIRONMENTAL ENGINEERING MANAGER Gender Identity Not on file Sexual Orientation [...] - 19+ 3-dose series) 01/09/2020 COVID-19 VACCINE ( - 2023-2 5 season) 2024 DEPRESSION SCREENING 06/01/2024 OB-ONE HOUR GLUCOSE 07/08/2024 OB-TDAP CURRENT 07/15/2024 OB-RHOGAM INJECTION 07/22/2024 OB-GROUP B STREP SCREEN 09/09/2024 INFLUENZA VACCINE (Season Ended) 2025 ZOSTER VACCINE (1 of 2) 2051 HIB [...] over 60 yrs (No Doses Required) Completed [place] [address] [place] [address]
--- OUTSIDE RECORDS SUMMARY | 2024-10-09 12:28 | XMS_ITS | Referral Summary ---
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
[2024-10-09 13:13] LABS: Basophils Percent Auto 0.2 % (0.2-1.2); Eosinophils Percent Auto 0.1 % (0-4.4); Hematocrit 38.9 % (37.0-47.0); Hemoglobin 11.5 g/dL (12.0-15.0); Immature Granulocyte Absolute 0.14 K/mm3 (0.00-0.031); Immature Granulocyte Percent A 0.7 % (0-0.5); Lymphocytes Absolute Auto 0.93 K/mm3 (0.9-3.2); Lymphocytes Percent Auto 4.9 % (18.3-44.2); Mean Corpuscular HGB Conc 29.6 g/dl (32-36); Mean Corpuscular Hemoglobin 22.6 pg (26-34); Mean Corpuscular Volume 76.6 fl (80-100); Mean Platelet Volume 10.8 fl (7.4-10.4); Monocytes Absolute Auto 0.7 K/mm3 (0.1-0.6); Monocytes Percent Auto 3.7 % (2.6-8.5); Neutrophils Absolute Auto 17.1 K/mm3 (1.3-6.7); Neutrophils Percent Auto 90.4 % (45.5-73.1); Platelet Count Result 279 k/mm3 (150-375); Red Blood Count 5.08 M/mm3 (4.2-5.4); Red Cell Distribution Width 15.8 % (11.5-14.5); White Blood Count 18.9 K/mm3 (4.5-10.0)
--- NOTE | 2024-10-09 13:15 | LDADM ---
This patient, Ronda Peraza, was admitted to Labor/Delivery/Recovery 104 on 10/09/24 at 12:00. Plans for labor, pain management and were discussed with patient. Patient/family oriented to hospital policies and general routines including ID bracelet, bed and alarms, visiting hours, pain management, procedures, bathroom and other care routines, personal items, smoking policy, room service/diet and guest tray routines, security routines, and visiting hours. Patient/Family are encouraged to report perceived risks to care and to ask questions if they do not understand what they are told or what they should do. See OBIX for further documentation.
[2024-10-09 13:33] LABS: Platelet Estimate Adequate (Adequate); Schistocytes None Seen
[2024-10-09 14:04] LABS: Syphilis IgG/IgM Antibody Negative (Negative)
[2024-10-09 14:08] LABS: HIV 1/2 Ab P24 Ag Result Negative (Negative)
--- NOTE | 2024-10-09 15:09 | WPDHPUPDATE1 ---
History and Physical Update Update Date/Time: 10/09/24 15:09 24 yo at 39w2d who presents in labor. History and Physical has been reviewed, including an updated exam of the patient. There are NO changes in the patient's condition. Risks, benefits, and alternatives have been discussed and questions answered. Patient agrees to proceed with procedure. A/P: uncomplicated thus far Rh+ GBS neg expectant management continuous EFM
[2024-10-09] MEDS: LACTATED RINGERS 1,000 ML 125 ML IV CONT (15:23)
[2024-10-09] MEDS: OXYTOCIN 30 UNITS/NS 500 ML 30 UNITS/500 ML BAG IV CONT (15:23)
[2024-10-09] MEDS: fentaNYL CITRATE INJ (*CRX) 100 MCG/2 ML VIAL 50 MCG IV PUSH (15:28)
--- NOTE | 2024-10-09 16:26 | PM.OBPRVD ---
OB - Vaginal Delivery Note Procedure Delivery date: 10/09/24 Induction method: None Delivery augmentation: Pitocin Delivery monitor: External FHT Route of delivery: Episiotomy description: None Laceration Description: Periurethral Specimen: No Quantitative Blood Loss (ml): 200 Anesthesia type: None Disposition: Floor Complications: No immediate complications Narrative: Patient pushed for a spontaneous vaginal delivery. The fetus was delivered atraumatically and placed on the maternal abdomen. The cord was clamped and cut after 1 minute of life. The cord was double clamped and cut and a segment of cord was collected for cord gases. Cord blood was collected for blood type and Coomb's testing. The placenta delivered spontaneously and was noted to be intact. The perineum was inspected and noted to be intact. The uterus was firm and good hemostasis was noted. Baby Date of : 10/09/24 Time of : 16:19 Gestational Age by Date: 39 gender: Female presentation: vertex position: Right Occiput Anterior Placenta delivery description: Spontaneous Cord Vessel Description: 3 Vessels score one minute: 9 score five minutes: 9
[2024-10-09] MEDS: OXYTOCIN 30 UNITS/NS 500 ML 30 UNITS/500 ML BAG 125 UNITS IV CONT (16:51)
[2024-10-09] MEDS: ACETAMINOPHEN 325 MG TABLET 650 MG PO (17:45)
--- NOTE | 2024-10-09 22:42 | OBPPTRN ---
10/09/2024 at 1845 Patient transferred to post room #284. Support person and patient oriented to unit, room, information board, rooming in, admission packet and security measures. Patient and her significant other verbalizes understanding.
[2024-10-10 01:40] VITALS: BP 126/57; PULSE 101; RESP 16; TEMP 37; O2SAT 100
[2024-10-10 04:48] LABS: Hematocrit 30.5 % (37.0-47.0); Hemoglobin 9.3 g/dL (12.0-15.0)
--- NOTE | 2024-10-10 07:34 | P.PNOB_ITS ---
OB - PN: Subj Subjective Date/time seen: 10/10/24 07:34 Narrative: PPD#1 Ronda reports doing well today. 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 Her pain is controlled. She is tolerating regular diet, voiding, passing gas, and ambulating without issues. She is breast feeding. She would like to go home today. OB - PN: Obj Data Labs 10/10/24 04:05 Labs: Laboratory Results - last 24 hr 10/09/24 10/10/24 12:45 04:05 WBC 18.9 H RBC 5.08 Hgb 11.5 L 9.3 L Hct 38.9 30.5 L MCV 76.6 L MCH 22.6 L MCHC 29.6 L RDW 15.8 H Plt Count 279 MPV 10.8 H Immature Gran % (Auto) 0.7 H Neut % (Auto) 90.4 H Lymph % (Auto) 4.9 L [place] % (Auto) 3.7 Eos % (Auto) 0.1 Baso % (Auto) 0.2 Lymph # (Auto) 0.93 [place] # (Auto) 0.7 H Eos # (Auto) 0.0 Baso # (Auto) 0.0 Abs Immat Gran (auto) 0.14 H Absolute Neuts (auto) 17.1 H Absolute Nucleated RBC 0.000 Band Neutrophils % Not Reportable Nucleated RBC % 0.0 Platelet Estimate Adequate Schistocytes None seen Syphilis IgG/IgM Ab Negative HIV 1&2 Ab/P24 Ag 4thGn Negative Blood Type O Positive Antibody Screen Negative OB - PN A/P Assessment and Plan (1) Normal vaginal delivery of second : Code(s): O80 - Encounter for full-term uncomplicated delivery Status: Acute Plan day: 1 Plan: routine care Comments: - PO pain meds - Regular diet - Ambulation and hydration encouraged - Continue putting baby to breast q2-3hr - Venofer 400mg IV once - Pelvic rest; take meds as prescribed - ER return precautions: fever, n/v/abd pain, bleeding, HTN Time Spent With Patient Time: Total time spent is greater than 50% in coordination of care (as documented) at patient's floor/unit and/or counseling patient: Review of Systems 2 Constitutional: Constitutional: Denies chills, Denies fever(s) and Denies headache(s) Eyes: Eyes: Denies change in vision ENT: Denies dizziness and Denies headache(s) Cardiovascular: Cardiovascular: Denies chest pain, Denies palpitations and Denies dyspnea Respiratory: Respiratory: Denies cough and Denies dyspnea Gastrointestinal: Gastrointestinal: Denies nausea and Denies vomiting Neurologic: Denies dizziness and Denies headache(s) Endocrine: Endocrine: Denies palpitations Exam 2 Const: General: cooperative, comfortable and no acute distress O rientation/consciousness: patient oriented x3 Resp: Effort & Inspection: normal respiratory effort Auscultation: clear to auscultation bilaterally Cardio: Rate: regular rate GI: Inspection: non-distended GI Palp: No abdominal tenderness and Yes Soft to palpation Auscultation: normal bowel sounds : Other: fundus firm Skin: General skin exam: normal color Neuro: General: patient oriented x3 Extrem: General: normal to inspection Psych: Appearance: grossly normal Affect: normal affect Attitude: c ooperative
[2024-10-10 07:40] VITALS: BP 122/76; PULSE 93; RESP 18; TEMP 36.7; O2SAT 99
--- NOTE | 2024-10-10 07:48 | PM.OBDSVD ---
DS: Admitting Diagnosis Discharge Date 10/10/24 Admitting Diagnosis Active labor at term DS: Discharge Diagnosis Discharge Diagnosis (1) Normal vaginal delivery of second : Code(s): O80 - Encounter for full-term uncomplicated delivery Status: Acute OB - DS: Summary OB Procedures : Ultrasound OB Procedures Intrapartum: Spontaneous Vag Delivery OB Procedures: : Other (Venofer 400mg IV once) Peripartum Data Delivery Method: Natural Vaginal Laceration Description: Periurethral Episiotomy description: None complications: none 1: Gender: Female Disposition of : home Status at Discharge Functional status at discharge: independent ambulation Overall status at discharge: patient is back to baseline Time Spent with Patient Time attestation: Total time spent providing and/or coordinating discharge services: Exam Const: General: cooperative, comfortable and no acute distress Orientation/consciousness: patient oriented x3 Resp: Effort & Inspection: normal respiratory effort Auscultation: clear to auscultation bilaterally Cardio: Rate: regular rate GI: Inspection: non-distended GI Palp: No abdominal tenderness and Yes Soft to palpation Auscultation: normal bowel sounds : Other: fundus firm Skin: General skin exam: normal color Neuro: General: patient oriented x3 Extrem: General: normal to inspection Psych: Appearance: grossly normal Affect: normal affect Attitude: cooperative DS: Data Data Completed and Pending Labs on day of discharge: Labs from last 24 hours 10/10/24 10/09/24 04:05 12:45 WBC 18.9 H RBC 5.08 Hgb 9.3 L 11.5 L Hct 30.5 L 38.9 MCV 76.6 L MCH 22.6 L MCHC 29.6 L RDW 15.8 H Plt Count 279 MPV 10.8 H Immature Gran % (Auto) 0.7 H Neut % (Auto) 90.4 H Lymph % (Auto) 4.9 L [place] % (Auto) 3.7 Eos % (Auto) 0.1 Baso % (Auto) 0.2 Lymph # (Auto) 0.93 [place] # (Auto) 0.7 H Eos # (Auto) 0.0 Baso # (Auto) 0.0 Abs Immat Gran (auto) 0.14 H Absolute Neuts (auto) 17.1 H Absolute Nucleated RBC 0.000 Band Neutrophils % Not Reportable Nucleated RBC % 0.0 Platelet Estimate Adequate Schistocytes None seen Syphilis IgG/IgM Ab Negative HIV 1&2 Ab/P24 Ag 4thGn Negative Blood Type O Positive Antibody Screen Negative Discharge Plan Discharge Attending physician on discharge: Anya Frye Discharging Clinician: Anya Frye Anticipated Discharge Date/Time: 10/10/24 17:00 Patient Disposition: Home Activity: may shower and pelvic rest Diet: regular Patient Instructions: Antibiotic Form Patient Language: Citizen Of [place] Stand Alone Forms: General Discharge Information Follow-up/Referrals: John Luevano MD [Physician] - 4 Weeks Discharge Medications: New ibuprofen 800 mg tablet 800 mg PO TID Qty: 30 0RF acetaminophen 500 mg tablet 1,000 mg PO TID Qty: 60 0RF docusate sodium [Colace] 100 mg capsule 100 mg PO BID Qty: 90 0RF Continued M- Plus 27 mg iron- 1 mg tablet 1 tablet PO DAILY Qty: 30 4RF Date of admission: 10/09/24 12:00 Primary Care Provider: UNKNOWN,DOCTOR Admitting Provider: Anya Frye Attending physician on admission: Anya Frye Condition: Stable
[2024-10-10] MEDS: DOCUSATE SODIUM 100 MG CAPSULE PO (09:14)
[2024-10-10] MEDS: LANOLIN (LANSINOH) 7.5 GM CREAM 1 APPLIC TOPICAL (09:14)
[2024-10-10] MEDS: MULTIVIT/MIN/PREN/FOL AC/IRON TABLET 1 TAB PO (09:15)
[2024-10-10] MEDS: IBUPROFEN 600 MG TABLET PO (09:15)
[2024-10-10] MEDS: IRON SUCROSE COMPLEX 400 MG in SODIUM CHLORIDE 0.9% IV 250 ML 108 MG IVPB (09:16)
[2024-10-10] MEDS: TETANUS,DIPHTHERIA,AC PERTUSSIS ADULT (0.5 ML) BOOSTRIX IM (09:16)
[2024-10-10 12:05] VITALS: BP 119/63; PULSE 101; RESP 16; TEMP 36.9; O2SAT 99
--- NOTE | 2024-10-10 16:45 | PC.NURSE ---
Consulted with mother concerning needs and she shared her ability to independently latch infant without pain. She has some soreness on the left nipple and works with baby's position to correct latch. Mother is feeding appropriately for growth of infant and understands stimulating to eat if needed. has had appropriate feedings in the last 24 hours meets the outcomes for weight, output, blood sugar and jaundice at this time. Reinforced understanding of signs of adequate intake, transition of stool, prevention/relief of engorgement, plugged ducts, mastitis, community resources, and when to call a provider using the resource of the feeding sheet along with the mom and baby guide. She has a breast pump at home and is already signed up for [facility]. Mother voiced understanding of the information shared, is confident to continue effectively her at home, when to call for assistance, denies any additional assistance or education at this time. Reported to the Primary RN.
[2024-10-12 09:27] VITALS: BP 126/84; PULSE 81; RESP 18; TEMP 36.7; O2SAT 100
== END 2024-10-10 18:25 | disposition home or self-care (01) | DRG 560 ==
LOC: ANHLDR 12:32 → ANHOB2 21:28
PROVIDERS: Admitting Provider Student in an Organized Health Care Education/Training Program; Visit Provider Obstetrics & Gynecology
DX: O71.82 Other specified trauma to perineum and vulva (principal); Z3A.39 39 weeks gestation of pregnancy; Z37.0 Single live birth
CPT/HCPCS: 36415; 85014; 85018; 85025; 86593; 86703; 86850; 86900; 86901; 90715; A9270; G0432; J1756; J2590; J3010; J7050; J7120